=== PATIENT | male | born 1970 | race Caucasian/White ===

== ENCOUNTER 2017-06-20 16:56 | Emergency (ER) | payer BC ==
[~2017-06-20] VITALS: Ht 177.8 cm; Wt 105.0 kg
[~2017-06-20 16:56] MED LIST: TYLENOL WITH C1 EACH PO
[2017-06-20 17:35] LABS: HEMATOCRIT 46.6 % (38.0-50.0); MCH 29.4 PG (29.0-34.0); MCHC 33.3 G/DL (30.0-36.0); MCV 88.3 FL (86-99); MEAN PLAT.VOLUME 10.7 uM^3 (9.0-12.4); PLATELET COUNT 264 K/uL (156-360); RBC DIS.WIDTH-SD 44.8 % (39-53); RED BLOOD COUNT 5.28 M/uL (4.00-5.50); WHITE BLOOD COUNT 13.4 K/uL (4.1-10.2)
[2017-06-20 17:44] LABS: CHLORIDE 104 mEq/L (99-109); POTASSIUM 3.8 mEq/L (3.7-5.4); SODIUM 139 mEq/L (136-147)
[2017-06-20 17:46] LABS: GLUCOSE 117 mg/dL (70-99)
[2017-06-20 17:47] LABS: ANION GAP 8 MEQ/L (2-14)
[2017-06-20 17:50] LABS: GFR ESTIMATE (CALCULATED) > 59 mL/min/ (58.99-99999)
[2017-06-20 17:51] LABS: UREA NITROGEN (BUN) 11 mg/dL (9-23)
[2017-06-20 17:56] LABS: TROP-I INTERPRETATION NEGATIVE; TROPONIN-I 0.02 ng/mL (0.0-0.30)
[2017-06-20 18:14] LABS: TOTAL BILIRUBIN 0.4 mg/dL (0.0-1.0)
[2017-06-20 18:15] LABS: ALKALINE PHOSPHATASE 80 IU/L (3-129)
[2017-06-20 18:18] LABS: LIPASE 25 U/L (1.0-51.0)
[2017-06-20] MEDS ORDERED: PREDNISONE10 M1 PO (20:00)
[2017-06-20 20:30] LABS: TROP-I INTERPRETATION NEGATIVE; TROPONIN-I < 0.01 ng/mL (0.0-0.30)
[2017-06-20] MEDS ORDERED: PRILOSEC20 MG PO (21:12)
[2017-06-20 21:39] VITALS: BP 152/89
== END 2017-06-20 21:39 | disposition home or self-care (01) ==
LOC: EME 16:56
PROVIDERS: Physician Assistant
DX: R10.13 Epigastric pain (principal); Z88.2 Allergy status to sulfonamides; Z87.891 Personal history of nicotine dependence
CPT/HCPCS: 71020; 76705; 80048; 80053; 83690; 84484; 85027; 93005; 99281; 99284; J1885